=== PATIENT | female | born 1950 | race Caucasian/White ===

== ENCOUNTER 2016-09-05 11:13 | Emergency (ER) | payer MEDICARE, OTHER ==
[2016-09-05 11:51] VITALS: BP 172/88
[2016-09-05] MEDS ORDERED: DIPHTH,PERTUSS(ACELL),TET VAC 0.5 ML VIAL IM ONE (12:18)
--- NOTE | 2016-09-05 12:54 | ERNOTE ---
Animal Bite ER Date of Service: 09/05/16 Presenting Symptoms: bitten Time Seen by Provider: 09/05/16 12:08 Source: patient, RN notes reviewed Exam Limitations: no limitations Immunizations: IMMUNIZATION HX Immunizations Up to Date Yes History of Influenza Vaccine No Hx Pneumococcal Vaccination No Allergies/Adverse Reactions: Allergies Penicillins Allergy (Verified 09/05/16 11:26) Sulfa (Sulfonamide Antibiotics) Allergy (Verified 09/05/16 11:26) Home Medications: HOME MEDICATIONS Doxycycline Monohydrate 100 mg PO BID #6 tablet 09/05/16 [Last Taken Unknown] metroNIDAZOLE [Flagyl] 500 mg PO Q8H #9 tablet 09/05/16 [Last Taken Unknown] Narrative: 65 y/o female to ED by private vehicle for a dog bite to her right posterior thigh that occurred at about 1100 today. She was in her own yard when 3 dogs that live nearby entered her yard and attacked her, her and her daughter. She also reports pain in the dorsum of her right foot. She believes she twisted her foot when she was trying to get away from the dogs. She is unsure of when she last had a tetanus vaccination. The police were notified and were present on scene. The dogs have been quarantined, as their rabies status is not known by their paper cutter. The patient denies needing any pain medication on initial evaluation. Date (Duration): 09/05/16 Onset Time: FICTION AND NONFICTION AUTHOR Location of Incident: Reports: home Animal Type: Reports: dog, neighborhood animal Animal Appearance: healthy Animal's Immunization Status: Reports: unknown Observation/Capture: Reports: animal known, animal can be observed for 10 days Context of Attack: Reports: unprovoked attack Severity of injury: Reports: bitten Location of Injury: Reports: lower extremity (R) Associated symptoms: Denies: numbness distally, pain on movement, tingling Prior Treatment: Denies: recently seen, currently on antibiotics Review of Systems - Review of Systems Constitutional: Absent: recent illness, fever, malaise EYE: Present: no symptoms reported ENT: Present: no symptoms reported Respiratory: Present: no symptoms reported Cardiology: Present: no symptoms reported Gastrointestinal/Abdominal: Present: no symptoms reported Genitourinary: Present: no symptoms reported Musculoskeletal: Absent: joint pain, joint swelling Skin: Absent: lesions, lumps, change in color Neurological: Absent: weakness, numbness, tingling Endocrine: Present: no symptoms reported Hematologic/Lymphatic: Absent: easy bruising, easy bleeding Psych: Present: no symptoms reported - Patient's Past Medical History Patient History - Medical: No pertinent hx Patient History - Cardiac/Respiratory: No pertinent hx Patient History - Cancer: No Hx of Cancer Patient History - Surgical Procedures: No surgical history Patient History - Other: None LMP (females 10-50): Menopausal - Social History Living Situations: spouse Smoking Status: Former smoker - Immunizations Immunizations Up to Date: Yes Hx Pneumococcal Vaccination: No History of Influenza Vaccine: No Physical Exam - Physical Exam General Appearance: Present: wd/wn, alert, no apparent distress, anxious Respiratory: Present: no respiratory distress, normal breath sounds, no accessory muscle use, lungs clear Cardiovascular/Chest: Present: regular rate, rhythm, no murmur, normal peripheral pulses Peripheral Pulses: N=norm/S=strong/W=weak/B=bound/A=absent: Dorsalis-pedis (R): Strong Extremity Exam: Present: normal range of motion, other - tenderness to dorsum of right foot, no ecchymosis, no edema, no deformity. Absent: joint swelling, extremity edema Neurological Exam: Present: alert, oriented, normal mood/affect, no motor/ sensory deficits Skin Exam: Present: normal color, warm/dry, other - several puncture wounds with surrounding contused tissue to right proximal posterior thigh ED Progress - Vital Signs Patient's Vital Signs:: I have reviewed the patient's vital signs. Vital Signs: Vital Signs 09/05/16 09/05/16 09/05/16 11:22 11:46 12:29 Temperature 37 C 37.6 C H 37.1 C Pulse Rate 106 H 104 H Respiratory 16 15 Rate Blood Pressure 182/90 172/88 O2 Sat by Pulse 100 100 Oximetry - X-Ray X-Ray #1 X-Ray: foot - Right Interpretation: Reviewed by me X-ray Comments: No acute osseous abnormality noted - Progress/Reassessment Chief Complaint: Animal Bite Progress:: Unchanged Departure Clinical Impression: Dog bite of right thigh Qualifiers: Encounter type: initial encounter Qualified Code(s): S71.151A - Open bite, right thigh, initial encounter Right foot sprain Qualifiers: Encounter type: initial encounter Qualified Code(s): S93.601A - Unspecified sprain of right foot, initial encounter - Departure Disposition: Home Follow Up Needed Condition: Stable Instructions: Foot Sprain, Animal Bite Additional Instructions: Keep wounds clean - apply antibiotic ointment twice a day Ice to sore areas Tylenol and/or ibuprofen for pain Referrals: Gail Adorno MD [Primary Care Provider] - Prescriptions: Doxycycline Monohydrate 100 mg PO BID #6 tablet metroNIDAZOLE [Flagyl] 500 mg PO Q8H #9 tablet
== END 2016-09-05 13:00 | disposition home or self-care (01) ==
LOC: ER 11:13
DX: S71.151A Open bite, right thigh, initial encounter (principal); S93.601A Unspecified sprain of right foot, initial encounter; W54.0XXA Bitten by dog, initial encounter; Y93.9 Activity, unspecified; Y92.007 Garden or yard of unspecified non-institutional (private) residence as the place of occurrence of the external cause; Z23 Encounter for immunization